=== PATIENT | male | born 2000 | race Caucasian/White ===

== ENCOUNTER → 2019-11-22 | Outpatient (CLI) | payer OTHER ==
[~2019-11-22] MED LIST: METHACHOLINE KIT (J7674) INH ONE
--- NOTE | 2019-11-22 11:26 | PFTRPT ---
Height: 72.00 Inches Weight: 190.00 Lbs BSA: 2.08 Diagnosis: R05 DATE OF PROCEDURE: 11/22/2019 ORDERED BY: Marina Elliott INTERPRETATION: Study of excellent technical quality. Under protocol, methacholine was administered. Even after a maximal dose of 25 mg or 188.875 CDUs, no provocation dose ever achieved. IMPRESSION: Negative methacholine challenge study. MTDD
== END ==
LOC: M CARPUL 10:33
PROVIDERS: ATTEND Physician Assistant
DX: R05 Cough (principal)
CPT/HCPCS: 94070; J7674